=== PATIENT | female | born 1975 | race Caucasian/White ===

== ENCOUNTER → 2016-08-10 | Outpatient (CLI) | payer BC ==
[~2016-08-10] MED LIST: CEPH250C PO; DOCU100C37 PO; HYDR-3812 PO; IBUP-1773 PO; LABE200T3 PO; METF500T4 PO; MTF500T PO; NIFE60TA64 PO
--- NOTE | 2016-08-10 20:45 | Diagnostic Imaging Report ---
OB ultrasound. INDICATION: Follow-up lower spine not seen well on ultrasound performed in Dr. Penn's office. FINDINGS: heart is 130 beats per minutes. The placenta is anterior. No placenta previa. position is cephalic. The lower spine is still not seen. The CAROLE is 8 cm. IMPRESSION: The lower lumbar spine is still not seen due to position and in part due to size with relatively low amounts of amniotic fluid. Total CAROLE is 8 cm. Dictated by: Dictated on workstation # [id number]
== END ==
LOC: RAD 15:35
PROVIDERS: ATTEND Obstetrics & Gynecology
DX: Z36 Encounter for antenatal screening of mother (principal); O09.513 Supervision of elderly primigravida, third trimester; O10.013 Pre-existing essential hypertension complicating pregnancy, third trimester; Z3A.36 36 weeks gestation of pregnancy
CPT/HCPCS: 76816

== ENCOUNTER → 2016-09-19 | Outpatient (CLI) | payer BC ==
[2016-09-19 13:48] LABS: PROTEIN/CREATININE RATIO 3.91
[2016-09-19 13:57] LABS: BODY SURFACE AREA 2.12
--- NOTE | 2016-09-21 08:02 | Physician Query-Final Dx ---
[facility] JON[facility] 09/21/16 0802: Clinic Account Progress/Dx Physician Query: Please give diagnosis Date of Service September 19, 2016 at 12:43 VINICIUS OCHOA MD 09/21/16 0854: Clinic Account Progress/Dx DIAGNOSIS: Diagnosis Hypertension in , proteinuria in [facility] JONES September 21, 2016 08:02 VINICIUS OCHOA MD September 21, 2016 08:54
== END ==
LOC: LAB 12:43
PROVIDERS: ATTEND Obstetrics & Gynecology
DX: O10.019 Pre-existing essential hypertension complicating pregnancy, unspecified trimester (principal); O12.2 Gestational edema with proteinuria
CPT/HCPCS: 36415; 82570; 82575; 84156

== ENCOUNTER 2016-09-23 14:42 | Inpatient (IN) | payer BC ==
[~2016-09-23 14:42] MED LIST changes: -CEPH250C PO; -DOCU100C37 PO; -HYDR-3812 PO; -IBUP-1773 PO; -LABE200T3 PO; -METF500T4 PO; -NIFE60TA64 PO
[2016-09-23] MEDS ORDERED: LACTATED RINGERS 1,000 ML IV ONE ×2 (15:22→15:34)
[2016-09-23 15:25] VITALS: BP 184/109
[2016-09-23] MEDS ORDERED: SUCCINYLCHOLINE INJ 100 MG/5 ML SYR INJ ONE (15:34)
[2016-09-23] MEDS ORDERED: HYDROmorphone (DILAUDID) 2 MG/ML VIAL ONE (15:51)
[2016-09-23] MEDS ORDERED: fentaNYL INJECTION 100 MCG/2 ML AMP ONE (15:51)
[2016-09-23] MEDS ORDERED: LABETALOL HCL 20 MG/4 ML VIAL ONE (15:52)
[2016-09-23] MEDS ORDERED: LABETALOL HCL 100 MG/20 ML VIAL IV ONE (15:52)
[2016-09-23] MEDS ORDERED: KETOROLAC 30 MG/ML VIAL ONE (15:55)
[2016-09-23] MEDS ORDERED: ONDANSETRON 4 MG/2 ML (SDV) Z0FRAN ONE (16:05)
[2016-09-23] MEDS ORDERED: proPOfol 200 MG/20 ML (DIPRIVAN) VIAL IV ONE (16:05)
--- NOTE | 2016-09-23 16:11 | Diagnostic Imaging Report ---
OB ultrasound. INDICATION: Evaluate biophysical profile. FINDINGS: Unfortunately heart activity is not seen compatible with demise. There is a very small amount of fluid around the fetus, severe oligohydramnios. The placenta is anterior. There is no placenta previa. position is breech. IMPRESSION: There is lack of cardiac activity compatible with demise. Dr. Penn's nurse, Yoli, was called by Mr. Smart, the geodetic surveyor technologist performing the exam and informed about the findings. The patient was sent to Dr. Penn's office as requested. Dictated by: Dictated on workstation # [id number]
[2016-09-23] MEDS ORDERED: morphine INJ 10 MG/ML 1ML (SYR OR VIAL) IVP PRN (16:15)
[2016-09-23] MEDS ORDERED: ONDANSETRON 4 MG/2 ML (SDV) Z0FRAN IVP PRN ×2 (16:15→16:30)
[2016-09-23] MEDS ORDERED: MEPERIDINE (DEMEROL) INJ 50 MG/ML IVP PRN (16:15)
[2016-09-23] MEDS ORDERED: D5 LR IV SOLUTION 1,000 ML IV SCH (16:20)
[2016-09-23] MEDS ORDERED: OXYTOCIN/NORMAL SALINE 500 ML IV SCH (16:20)
[2016-09-23] MEDS ORDERED: SEVOFLURANE (ULTANE) 15 ML INHAL SOLN ONE (16:23)
--- NOTE | 2016-09-23 16:25 | History & Physical-OB/GYN ---
History of Present Illness History of Present Illness Reason for visit/HPI Patient is a 41 year old G1 at 34 weeks. History of chronic hypertension ( Procardia 60 mg XL), AMA, gestational diabetes,preexisting with metformin only prepregnancy and then glyburide 2.5 mg daily. A1C at 28 weeks 6.6. Had normal survey at 18-20 weeks except some limits in the visualization of the lower spine due to positioning and body habitus. Repeat sono still unable to see spine well. Has had BP fairly well controlled on Procardia XL 60 mg daily, and blood sugars with metformin and glyburide 2.5 mg daily. However, has been spilling occasional protein so 24 hour urine was completed this week. Also has had E coli UTI diagnosed 09/21 and treated with Keflex. Present to US today for scheduled growth scan and BPP for scheduled testing. No hearttones noted and fluid very low, notified me with results. Patient presented to clinic for results and to discuss findings. Finding confirmed by me with US in office. BP in office 148/78. Patient reports no headaches, no blurred vision, no abdominal pain, no contractions, no leakage of fluid, no bleeding. Despite obvious demise, unknown the duration. and patient requested that an emergency section be done "in case we can do anything". Due to baby positioning, a section would be suggested as well. . Patient and taken to women's services for emergency section. Patient understands that this will be done under general anesthesia. Risks of procedure includes, bleeding, infection, injury to bowel, bladder and ureter. Date of Admission September 23, 2016 at 15:26 I consulted on this patient on 09/23/16 16:25 Surgery done emergently. History and physical done late entry Attending Physician Fernando Gonzalez DO Admitting Physician Fernando Gonzalez DO Consult Allergies and Home Medications Allergies Coded Allergies: No Known Drug Allergies (Unverified , 03/07/12) Home Medications Metformin Hcl 500 Mg Tab, 500 MG PO BID, (Reported) Past Mwknqpg-Czrubt-Zirjjo Hx Patient Social History Marrital Status: Number of Children: 0 Number of living children: 0 Employed/Student: employed Alcohol Use: Denies Use Recreational Drug Use: No Smoking Status: Never a Smoker Recent Foreign Travel: No Contact w/other who traveled: No Immunizations Up To Date Tetanus Booster (TDap): Unknown Surgeries HX Surgeries: Yes Surgeries: Breast (Reduction mammoplasty) Respiratory Hx Respiratory Disorders: No Cardiovascular Cardiac Disorders: Hypertension Neurological Hx Neurological Disorders: No Reproductive System : Yes Hx : 1 Hx Para: 0 Sexually Transmitted Disease: No HIV/AIDS: No Genitourinary Hx Genitourinary Disorders: No Gastrointestinal Hx Gastrointestinal Disorders: No Endocrine Endocrine Disorders: Diabetes, Non-Insulin dep HEENT HX ENT Disorders: No Cancer Hx Cancer: No Psychosocial Hx Psychiatric Problems: No Integumentary HX Skin/Integumentary Disorder: No Blood Transfusions Hx Blood Disorders: No Adverse Reaction to a Blood Tr: No Family Medical History Significant Family History: Heart Disease, CAD Under 55 Years Old, CAD Over 55 Years Old, Diabetes Constitutional: no symptoms reported EENTM: other (no visual changes) Respiratory: no symptoms reported Cardiovascular: no symptoms reported Expected Date of Delivery: Nov 04, 2016 Control/STD Prophylaxis: None Musculoskeletal: no symptoms reported Skin: no symptoms reported Psychiatric/Neurological: No Symptoms Reported Physical Exam Physical Exam Vital Signs Vital Signs Date Time Temp Pulse Resp B/P (MAP) Pulse Ox O2 Delivery O2 Flow Rate FiO2 09/23/16 17:28 99.2 106 18 153/90 97 09/23/16 15:25 143 20 184/109 99 Capillary Refill : Labs Laboratory Tests 09/23/16 16:46: Sodium Level 136, Potassium Level 4.5, Chloride Level 105, Carbon Dioxide Level 21, Anion Gap 10, Blood Urea Nitrogen 12, Creatinine 0.70, Estimat Glomerular Filtration Rate > 60, BUN/Creatinine Ratio 17, Glucose Level 108H, Calcium Level 9.0, Total Bilirubin 0.1, Aspartate Amino Transf (AST/SGOT) 16, Alanine Aminotransferase (ALT/SGPT) 17, Alkaline Phosphatase 144H, Total Protein 5.9L, Albumin 2.9L General Appearance: Moderate Distress Respiratory: Chest Non Tender, Lungs Clear, Normal Breath Sounds Cardiovascular: Regular Rate, Rhythm, No Murmur, Other (1+ edema. normal DTR) Abdominal: normal bowel sounds, non tender Gynecology/General: No urethral discharge, No lesions Uterus: Other (FH 34) Pelvic Exam: other (deferred) Extremity: Pedal Edema Comments No heart tones notes, minimal fluid noted. Confirmed with US x 3. No pelvic exam done. Assessment/Plan Assessment and Plan 1. Advanced maternal age at 34 weeks (41 year old) with probable demise 2. Breech presentation 3. Chronic hypertension 4. proteinuria, likely due to above with increase due to UTI 5. E Coli UTI 6. Gestational diabetes, B, controlled with glyburide. 7. oligohydramnios Likely demise.Patient and request "everything done" and therefore will proceed with Stat section under general anesthesia. Likelihood of resuscitation limited. Will monitor BP and blood sugars. Treat suspected preeclampsia as indicated. Risks of surgery include but are not limited to, bleeding, infection, injury to bowel, bladder and ureter. Consents signed. Prophylactic Ancef. Problems: FERNANDO GONZALEZ DO September 23, 2016 16:25
[2016-09-23] MEDS: HYDROmorphone (DILAUDID) 2 MG/ML VIAL IVP PRN ×2 (16:29→16:39)
[2016-09-23] MEDS ORDERED: HYDROmorphone (DILAUDID) 2 MG/ML VIAL IVP PRN (16:30)
[2016-09-23] MEDS ORDERED: TETANUS,DIPTH,PERTUSS P/F (BOOSTRIX) 0.5 ML VIAL IM SCH (16:30)
[2016-09-23] MEDS ORDERED: MEASLES,MUMPS,RUBELLA 1 EA INJ SC SCH (16:30)
[2016-09-23] MEDS: KETOROLAC 30 MG/ML VIAL IVP SCH ×2 (16:34→22:00)
[2016-09-23] MEDS: fentaNYL INJECTION 100 MCG/2 ML AMP IVP PRN ×2 (16:43→16:49)
[2016-09-23] MEDS ORDERED: ceFAZolin 1,000 MG (ANCEF) VIAL IV ONE (17:15)
[2016-09-23 17:28] VITALS: BP 153/90
[2016-09-23 18:49] LABS: ALANINE AMINOTRANSFERASE 17 U/L (0-55); ALBUMIN 2.9 G/DL (3.2-4.5); ANION GAP 10 MMOL/L (5-14); ASPARTATE AMINO TRANSFERASE 16 U/L (5-34); BILIRUBIN,TOTAL 0.1 MG/DL (0.1-1.0); BLOOD UREA NITROGEN 12 MG/DL (7-18); BUN/CREATININE RATIO 17; CARBON DIOXIDE 21 MMOL/L (21-32); CHLORIDE 105 MMOL/L (98-107); GFR ESTIMATED > 60; GLUCOSE 108 MG/DL (70-105); POTASSIUM 4.5 MMOL/L (3.6-5.0); SODIUM 136 MMOL/L (135-145); TOTAL PROTEIN 5.9 G/DL (6.4-8.2)
[2016-09-23 22:00] VITALS: BP 157/95
[2016-09-23] MEDS ORDERED: CATHETER FLUSH 10 ML SYR IV SCH (22:00)
[2016-09-23] MEDS ORDERED: LACTATED RINGERS 1,000 ML IV SCH (23:00)
[2016-09-23] MEDS: HYDROcodone/APAP 5 MG/325 MG (LORTAB) TAB PO PRN (23:08)
[2016-09-23] MEDS ORDERED: D5 LR IV SOLUTION 1,000 ML IV ONE (23:46)
[2016-09-24] VITALS (9 sets, daily range): BP systolic 146–178; BP diastolic 89–107
[2016-09-24] MEDS: KETOROLAC 30 MG/ML VIAL IVP SCH (04:13)
[2016-09-24 06:30] LABS: BASOPHILS % (AUTO) 0 % (0-10); EOSINOPHILS # (AUTO) 0.2 10^3/uL (0.0-0.3); EOSINOPHILS % (AUTO) 1 % (0-10); LYMPHOCYTES % (AUTO) 25 % (12-44); MEAN CORPUSCULAR HEMOGLOBIN 30 PG (25-34); MEAN CORPUSCULAR HGB CONC 33 G/DL (32-36); MEAN CORPUSCULAR VOLUME 89 FL (80-99); MEAN PLATELET VOLUME 9.2 FL (7.4-10.4); MONOCYTES # (AUTO) 0.9 X 10^3 (0.0-1.0); MONOCYTES % (AUTO) 7 % (0-12); NEUTROPHILS # (AUTO) 7.9 X 10^3 (1.8-7.8); NEUTROPHILS % (AUTO) 66 % (42-75); PLATELET COUNT 269 10^3/uL (130-400); RED BLOOD COUNT 3.36 10^6/uL (4.35-5.85); RED CELL DISTRIBUTION WIDTH 14.5 % (10.0-14.5); WHITE BLOOD COUNT 11.9 10^3/uL (4.3-11.0)
[2016-09-24] MEDS: NIFEdipine ER 60 MG (PROCARDIA XL) TAB PO SCH (06:32)
[2016-09-24] MEDS: metFORMIN 500 MG (GLUCOPHAGE) TAB PO SCH ×2 (08:55→18:08)
[2016-09-24] MEDS: DOCUSATE SODIUM 100 MG (COLACE) CAP PO SCH (08:55)
[2016-09-24] MEDS: HYDROcodone/APAP 5 MG/325 MG (LORTAB) TAB PO PRN ×2 (09:09→15:46)
--- NOTE | 2016-09-24 14:04 | Postpartum Progress Note ---
Post Op Post-operative Day #1 s/pPLTCS, Emergency due to breech/ demise, chronic hypertension, Recent UTI, Gestational diabetes, B Subjective: Patient is without complaints. Ambulating, voiding after lance removed. Tolerating a regular diet without nausea or vomiting. Normal lochia. Pain is well controlled with oral pain medications. Understandable sad. Spent time with baby yesterday. No autopsy. Objective: Laboratory Tests Test 09/23/16 16:46 09/24/16 06:07 09/24/16 06:38 Range/Units Sodium Level 136 135-145 MMOL/L Potassium Level 4.5 3.6-5.0 MMOL/L Chloride Level 105 98-107 MMOL/L Carbon Dioxide Level 21 21-32 MMOL/L Anion Gap 10 5-14 MMOL/L Blood Urea Nitrogen 12 7-18 MG/DL Creatinine 0.70 0.60-1.30 MG/DL Estimat Glomerular Filtration Rate > 60 BUN/Creatinine Ratio 17 Glucose Level 108 H 70-105 MG/DL Calcium Level 9.0 8.5-10.1 MG/DL Total Bilirubin 0.1 0.1-1.0 MG/DL Aspartate Amino Transf (AST/SGOT) 16 5-34 U/L Alanine Aminotransferase (ALT/SGPT) 17 0-55 U/L Alkaline Phosphatase 144 H 40-136 U/L Total Protein 5.9 L 6.4-8.2 G/DL Albumin 2.9 L 3.2-4.5 G/DL White Blood Count 11.9 H 4.3-11.0 10^3/uL Red Blood Count 3.36 L 4.35-5.85 10^6/uL Hemoglobin 10.0 #L 11.5-16.0 G/DL Hematocrit 30 L 35-52 % Mean Corpuscular Volume 89 80-99 FL Mean Corpuscular Hemoglobin 30 25-34 PG Mean Corpuscular Hemoglobin Concent 33 32-36 G/DL Red Cell Distribution Width 14.5 10.0-14.5 % Platelet Count 269 130-400 10^3/uL Mean Platelet Volume 9.2 7.4-10.4 FL Neutrophils (%) (Auto) 66 42-75 % Lymphocytes (%) (Auto) 25 12-44 % Monocytes (%) (Auto) 7 0-12 % Eosinophils (%) (Auto) 1 0-10 % Basophils (%) (Auto) 0 0-10 % Neutrophils # (Auto) 7.9 H 1.8-7.8 X 10^3 Lymphocytes # (Auto) 3.0 1.0-4.0 X 10^3 Monocytes # (Auto) 0.9 0.0-1.0 X 10^3 Eosinophils # (Auto) 0.2 0.0-0.3 10^3/uL Basophils # (Auto) 0.0 0.0-0.1 10^3/uL Glucometer 126 H 70-110 MG/DL Physical Exam: General - Alert and oriented, no apparent distress Abdomen - Soft, appropriately tender to palpation, non-distended, fundus firm at umbilicus Incision - clean, dry and intact; no erythema or induration, no drainage Extremities - no edema, negative Akbar's bilaterally [] Assessment: [] post-operative day # [], status post []. Recovering well, hemodynamically stable Acute blood loss anemia [] Plan: Routine post-operative care. Encourage breast feeding. Encourage ambulation. VTE prophylaxis: SCDs. Ferrous sulfate supplementation. Plan for discharge [] Vitals - Labs Vital Signs - I&O Vital Signs Date Time Temp Pulse Resp B/P (MAP) Pulse Ox O2 Delivery O2 Flow Rate FiO2 09/24/16 09:05 99.4 111 18 146/93 97 09/24/16 07:00 98.1 108 18 150/91 97 09/24/16 06:25 98.4 94 18 178/100 98 09/24/16 02:34 98.0 92 18 150/89 96 09/23/16 22:00 99.0 102 18 157/95 96 09/23/16 17:28 99.2 106 18 153/90 97 09/23/16 15:25 143 20 184/109 99 I & O 09/24/16 07:00 Intake Total 700 ml Output Total 320 ml Balance 380 ml Labs Laboratory Tests 09/23/16 16:46: Sodium Level 136, Potassium Level 4.5, Chloride Level 105, Carbon Dioxide Level 21, Anion Gap 10, Blood Urea Nitrogen 12, Creatinine 0.70, Estimat Glomerular Filtration Rate > 60, BUN/Creatinine Ratio 17, Glucose Level 108H, Calcium Level 9.0, Total Bilirubin 0.1, Aspartate Amino Transf (AST/SGOT) 16, Alanine Aminotransferase (ALT/SGPT) 17, Alkaline Phosphatase 144H, Total Protein 5.9L, Albumin 2.9L 09/24/16 06:07: White Blood Count 11.9H, Red Blood Count 3.36L, Hemoglobin 10.0#L, Hematocrit 30L, Mean Corpuscular Volume 89, Mean Corpuscular Hemoglobin 30, Mean Corpuscular Hemoglobin Concent 33, Red Cell Distribution Width 14.5, Platelet Count 269, Mean Platelet Volume 9.2, Neutrophils (%) (Auto) 66, Lymphocytes (%) (Auto) 25, Monocytes (%) (Auto) 7, Eosinophils (%) (Auto) 1, Basophils (%) (Auto ) 0, Neutrophils # (Auto) 7.9H, Lymphocytes # (Auto) 3.0, Monocytes # (Auto) 0.9 , Eosinophils # (Auto) 0.2, Basophils # (Auto) 0.0 09/24/16 06:38: Glucometer 126H FERNANDO GONZALEZ DO September 24, 2016 14:04
--- NOTE | 2016-09-24 14:20 | Anesthesia-General Post-Op ---
General Patient Condition Mental Status/LOC: Same as Preop Cardiovascular: Satisfactory Nausea/Vomiting: Absent Respiratory: Satisfactory Pain: Controlled Complications: Absent Post Op Complications Complications None Follow Up Care/Instructions Patient Instructions None needed. Anesthesia/Patient Condition Patient Condition Patient is ambulating with expected abd pain after C/S, stable vital signs, no apparent adverse anesthesia problems. Plan for D/C to home tomorrow per patient. Will be available if needed. LASHAWN CRAIG DO September 24, 2016 14:20
[2016-09-24] MEDS ORDERED: LABETALOL 200 MG (NORMODYNE) TAB PO NR (15:15)
[2016-09-24] MEDS: IBUPROFEN 600 MG (MOTRIN) TAB PO SCH ×2 (15:46→22:02)
[2016-09-24] MEDS ORDERED: CEPHALEXIN 250 MG (KEFLEX) CAP PO SCH (21:00)
[2016-09-25 01:15] VITALS: BP 151/92
[2016-09-25] MEDS: IBUPROFEN 600 MG (MOTRIN) TAB PO SCH ×2 (04:08→11:10)
[2016-09-25 04:15] VITALS: BP 174/97
[2016-09-25] MEDS: NIFEdipine ER 60 MG (PROCARDIA XL) TAB PO SCH (04:18)
[2016-09-25 06:00] VITALS: BP 148/85
[2016-09-25] MEDS: KETOROLAC 30 MG/ML VIAL IVP SCH (07:52)
[2016-09-25] MEDS: DOCUSATE SODIUM 100 MG (COLACE) CAP PO SCH (08:35)
[2016-09-25] MEDS: metFORMIN 500 MG (GLUCOPHAGE) TAB PO SCH (08:36)
[2016-09-25 08:38] VITALS: BP 158/101
[2016-09-25] MEDS ORDERED: FUROSEMIDE 20 MG (LASIX) TAB ONE (09:04)
[2016-09-25] MEDS ORDERED: LABETALOL 200 MG (NORMODYNE) TAB PO SCH (09:15)
[2016-09-25] MEDS ORDERED: FUROSEMIDE 20 MG (LASIX) TAB PO ONE (09:15)
--- NOTE | 2016-09-25 10:28 | Postpartum Progress Note ---
Post Op Post-operative Day #2 s/p emergency PLTCS Chronic hypertension, proteinuria, gest diabetes B, IUGR, demise Subjective: Patient is wunderstandably depressed but declines medictino at this time. Received Lasix this am and labetalol last night and had labile and elevated BP last night.. Ambulating, voiding after lance removed. Tolerating a regular diet without nausea or vomiting. Normal lochia. Pain is well controlled with oral pain medications. Passing flatus. Has voided 3600 + since last night. Beginning to diurese. R [] feeding. [] Objective: Vital Sign - Last 12Hours 09/25/16 09/25/16 09/25/16 09/25/16 01:15 04:15 06:00 08:38 Temp 97.7 97.7 98.6 98.2 Pulse 91 96 109 102 Resp 18 18 18 20 B/P (MAP) 151/92 174/97 148/85 158/101 Pulse Ox 97 97 97 98 Laboratory Tests Test 09/25/16 06:05 09/25/16 10:26 Range/Units Glucometer 104 70-110 MG/DL Physical Exam: General - Alert and oriented, no apparent distress Abdomen - Soft, appropriately tender to palpation, non-distended, fundus firm at umbilicus Incision - clean, dry and intact; no erythema or induration, no drainage Extremities - no edema, negative Akbar's bilaterally [] Assessment: [1. post-operative day # 2, status post []. Recovering well, hemodynamically stable Acute blood loss anemia [] Plan: Routine post-operative care. Encourage breast feeding. Encourage ambulation. VTE prophylaxis: SCDs. Ferrous sulfate supplementation. Plan for discharge [] Vitals - Labs Vital Signs - I&O Vital Signs Date Time Temp Pulse Resp B/P (MAP) Pulse Ox O2 Delivery O2 Flow Rate FiO2 09/25/16 08:38 98.2 102 20 158/101 98 09/25/16 06:00 98.6 109 18 148/85 97 09/25/16 04:15 97.7 96 18 174/97 97 09/25/16 01:15 97.7 91 18 151/92 97 09/24/16 21:30 98.1 96 18 149/90 97 09/24/16 17:00 109 20 173/107 09/24/16 16:30 102 20 152/102 09/24/16 14:50 107 18 168/94 98 09/24/16 14:45 98.8 107 18 176/104 98 I & O 09/25/16 07:00 Intake Total 600 ml Output Total 1600 ml Balance -1000 ml Labs Laboratory Tests 09/25/16 06:05: Glucometer 104 FERNANDO GONZALEZ DO September 25, 2016 10:28
[2016-09-25] MEDS ORDERED: HYDR-3812 PO (10:42)
[2016-09-25] MEDS ORDERED: IBUP-1773 PO (10:42)
[2016-09-25] MEDS ORDERED: CEPH250C PO (10:42)
[2016-09-25] MEDS ORDERED: DOCU100C37 PO (10:42)
[2016-09-25] MEDS ORDERED: METF500T4 PO (10:42)
[2016-09-25] MEDS ORDERED: NIFE60TA64 PO (10:42)
[2016-09-25] MEDS ORDERED: LABE200T3 PO (10:42)
--- NOTE | 2016-09-25 10:46 | Discharge Inst-Women's Service ---
Discharge Inst-Women's Serv Depart Medication/Instructions New, Converted or Re-Newed RX: RX on Chart Instructions Continue previous doses of procardia, metformin and keflex Final Diagnosis demise Breech Primary section Chronic hypertension Gestational diabetes, B IUGR Oligohydramnios Consults/Follow Up Additional Follow Up: Yes (09/30/16 at 4 pm.) Activity Activity: Activity as Tolerated (no lifting over 25 lbs) Driving Instructions: No Driving for 1 Week NO SMOKING: NO SMOKING Nothing Inside Vagina: No Douching, No [place], No Tampons Diet Discharge Diet: ADA Diet (2000 kcal) Symptoms to Report to : Bleeding Excessive, Pain Increased, Fever Over 101 Degrees F, Pain/Pressure in Chest, Heart Beat Irreg/Pounding, Pain/Pressure in Jaw, Vaginal Bleeding Increase, Pain/Pressure in Shoulder, Vaginal Discharge Foul, Wt Gain Consecutive Days, Dizziness/Fainting, Shortness of Breath, Weight Gain Over 2 Pounds worsening depression For Any Problems or Questions: Contact Your Physician Skin/Wound Care Infection Signs and Symptoms: Increased Redness, Foul Odor of Wound, Increased Drainage, Skin Itchy or Has a Rash, Increased Swelling, Temperature Above 101 F Operative Area Clean and Dry: Keep Incision Clean/Dry Stitches/[place]/Dermabond: Dermabond Bathing Instructions: FERNANDO Benedict DO September 25, 2016 10:46
[2016-09-25 10:52] LABS: ALANINE AMINOTRANSFERASE 16 U/L (0-55); ALBUMIN 2.7 G/DL (3.2-4.5); ANION GAP 10 MMOL/L (5-14); ASPARTATE AMINO TRANSFERASE 16 U/L (5-34); BILIRUBIN,TOTAL 0.2 MG/DL (0.1-1.0); BLOOD UREA NITROGEN 10 MG/DL (7-18); BUN/CREATININE RATIO 13; CALCIUM 8.6 MG/DL (8.5-10.1); CARBON DIOXIDE 22 MMOL/L (21-32); CHLORIDE 107 MMOL/L (98-107); CREATININE SERUM 0.79 MG/DL (0.60-1.30); GFR ESTIMATED > 60; GLUCOSE 229 MG/DL (70-105); LACTATE DEHYDROGENASE 165 U/L (125-220); POTASSIUM 4.2 MMOL/L (3.6-5.0); SODIUM 139 MMOL/L (135-145); TOTAL PROTEIN 5.6 G/DL (6.4-8.2); URIC ACID 5.6 MG/DL (2.6-7.2)
[2016-09-25] MEDS: HYDROcodone/APAP 5 MG/325 MG (LORTAB) TAB PO PRN (11:42)
--- NOTE | 2016-09-26 18:09 | Discharge Summary ---
Diagnosis/Chief Complaint Date of Admission September 23, 2016 at 15:26 Date of Discharge September 25, 2016 at 12:13 Discharge Date: September 25, 2016 Admission Diagnosis Admission Diagnosis 1. Advanced maternal age at 34 weeks (41 year old) with probable demise 2. Breech presentation 3. Chronic hypertension 4. proteinuria, likely due to above with increase due to UTI 5. E Coli UTI 6. Gestational diabetes, B, controlled with glyburide. 7. oligohydramnios Likely demise.Patient and request "everything done" and therefore will proceed with Stat section under general anesthesia. Likelihood of resuscitation limited. Will monitor BP and blood sugars. Treat suspected preeclampsia as indicated. Risks of surgery include but are not limited to, bleeding, infection, injury to bowel, bladder and ureter. Consents signed. Prophylactic Ancef. Reason Hospital Visit Patient is a 41 year old G1 at 34 weeks. History of chronic hypertension ( Procardia 60 mg XL), AMA, gestational diabetes,preexisting with metformin only prepregnancy and then glyburide 2.5 mg daily. A1C at 28 weeks 6.6. Had normal survey at 18-20 weeks except some limits in the visualization of the lower spine due to positioning and body habitus. Repeat sono still unable to see spine well. Has had BP fairly well controlled on Procardia XL 60 mg daily, and blood sugars with metformin and glyburide 2.5 mg daily. However, has been spilling occasional protein so 24 hour urine was completed this week. Also has had E coli UTI diagnosed 09/21 and treated with Keflex. Present to US today for scheduled growth scan and BPP for scheduled testing. No hearttones noted and fluid very low, notified me with results. Patient presented to clinic for results and to discuss findings. Finding confirmed by me with US in office. BP in office 148/78. Patient reports no headaches, no blurred vision, no abdominal pain, no contractions, no leakage of fluid, no bleeding. Despite obvious demise, unknown the duration. and patient requested that an emergency section be done "in case we can do anything". Due to baby positioning, a section would be suggested as well. . Patient and taken to women's services for emergency section. Patient understands that this will be done under general anesthesia. Risks of procedure includes, bleeding, infection, injury to bowel, bladder and ureter. Discharge Summary-OBS Procedures None. Discharge Physical Examination Allergies: Coded Allergies: No Known Drug Allergies (Unverified , 03/07/12) Vitals & I&Os Vital Signs Date Time Temp Pulse Resp B/P (MAP) Pulse Ox O2 Delivery O2 Flow Rate FiO2 09/25/16 08:38 98.2 102 20 158/101 98 Discharge Instructions to patient/family Please see electonic discharge instructions given to patient. Discharge Medications Reviewed and agree with Discharge Medication list on patient's Discharge Instruction sheet Clinical Quality Measures DVT/VTE Risk/Contraindication: Risk Factor Score Per Nursin RFS Level Per Nursing on Admit: 1=Low/No VTE PPX FERNANDO GONZALEZ DO September 26, 2016 18:08
== END 2016-09-25 12:13 | disposition home or self-care (01) | DRG 765 ==
LOC: RAD 14:42 → LDRP 15:26 → EDSTATUS 10-07 15:30
PROVIDERS: ADMIT Obstetrics & Gynecology; ATTEND Obstetrics & Gynecology
PROC: 10D00Z1 Extraction of Products of Conception, Low, Open Approach (ICD-10-PCS; principal; 2016-09-24)
DX: O41.03X0 Oligohydramnios, third trimester, not applicable or unspecified (principal); O10.013 Pre-existing essential hypertension complicating pregnancy, third trimester; O24.113 Pre-existing type 2 diabetes mellitus, in pregnancy, third trimester; O32.1XX0 Maternal care for breech presentation, not applicable or unspecified; O23.43 Unspecified infection of urinary tract in pregnancy, third trimester; B96.20 Unspecified Escherichia coli [E. coli] as the cause of diseases classified elsewhere; O36.5930 Maternal care for other known or suspected poor fetal growth, third trimester, not applicable or unspecified; O12.13 Gestational proteinuria, third trimester; O09.513 Supervision of elderly primigravida, third trimester; Z37.1 Single stillbirth; Z3A.34 34 weeks gestation of pregnancy
CPT/HCPCS: 36415; 76815; 80053; 82962; 83033; 83615; 84550; 85025

== ENCOUNTER 2017-12-28 10:09 | Day surgery (SDC) | payer BC, OTHER ==
[~2017-12-28] VITALS: Ht 160 cm; Wt 113.4 kg
[~2017-12-28 10:09] MED LIST changes: +ACHD5005 PO; +CEPH250C PO; +DOCU100C37 PO; +IBUP-1773 PO; +LABE200T7 PO; +METF500T5 PO; +NIFE60TA64 PO
[2017-12-28 10:10] VITALS: BP 108/54
--- OUTSIDE RECORDS SUMMARY | 2017-12-28 10:13 | XMS REPORT | Clinical Summary ---
Author Author [facility] Organization [facility] Address Unknown Phone Unavailable Care Team Providers Care Clinical Data Specialist Name Role Phone Bonnie Soliz MD PCP Source Comments Some departments are not documenting in the electronic medical record. If you do not see the information that you expected, contact Release of Information in the Health Information Management department at [phone] for further assistance in locating additional records.[facility] Allergies No Known Allergies Current Medications Prescription Sig. Disp. Refills Start End Date Status Date ONETOUCH VERIO test strip TEST DIRECTED 5 02/03/20 Active 17 glyBURIDE (DIABETA) 5 mg 02/25/20 Active tablet 17 OVIDREL 250 mcg/0.5 mL INJECT SUBCUTANEOUSLY 3 02/12/20 Active injection syringe WHEN DIRECTED PER 17 PROTOCOL. letrozole (FEMARA) 2.5 mg 02/28/20 Active tablet 17 labetalol (NORMODYNE) 200 02/11/20 Active mg tablet 17 metFORMIN (GLUCOPHAGE) 03/04/20 Active 1,000 mg tablet 17 NIFEdipine XL 03/15/20 Active (PROCARDIA-XL) 60 mg 17 tablet NIFEdipine XL 02/25/20 Active (PROCARDIA-XL) 30 mg 17 tablet progesterone, 03/13/20 Active micronized(+) 17 (PROMETRIUM) 200 mg capsule VIT Take by mouth. Active CALC,IRON,FOLIC ( VITAMIN PO) aspirin EC 81 mg tablet Take 81 mg by mouth Active daily. Take with food. Active Problems No known active problems Family History Medical History Relation Name Comments COPD Father Cancer Father High Cholesterol Father Hypertension Father Diabetes Mother High Cholesterol Mother Hypertension Mother Relation Name Status Comments Father Alive Mother Alive Social History Tobacco Use Types Packs/Day Years Used Date Never Smoker Smokeless Tobacco: Never Used Tobacco Cessation: Counseling Given: No Alcohol Use Drinks/Week oz/Week Comments Yes Sex Assigned at Date Recorded Not on file Last Filed Vital Signs Vital Sign Reading Time Taken Blood Pressure 129/81 03/16/2017 2:31 PM CDT Pulse 96 03/16/2017 2:31 PM CDT Temperature - - Respiratory Rate - - Oxygen Saturation - - Inhaled Oxygen - - Concentration Weight 107.4 kg (236 lb 12.8 oz) 03/16/2017 2:25 PM CDT Height 161.5 cm (5' 3.6") 03/16/2017 2:25 PM CDT Body Mass Index 41.16 03/16/2017 2:25 PM CDT Plan of Treatment Health Maintenance Due Date Last Done Comments PHYSICAL (COMPREHENSIVE) 08/13/1982 EXAM PERTUSSIS VACCINE 08/13/1986 HIV SCREENING 08/13/1990 TETANUS VACCINE 08/13/1992 CERVICAL CANCER SCREENING 08/13/2005 BREAST CANCER SCREENING 2015 INFLUENZA VACCINE 02/13/2018 Results Not on filefrom Last 3 Months
--- NOTE | 2017-12-28 10:28 | Progress Note-Pre Operative ---
Pre-Operative Progress Note H&P Reviewed The H&P was reviewed, patient examined and no changes noted. Date Seen by Provider: Dec 28, 2017 Time Seen by Provider: 10:28 Date H&P Reviewed: Dec 28, 2017 Time H&P Reviewed: :28 Pre-Operative Diagnosis: LT PROXIMAL URETERAL STONE JASMYNE WALDEN MD Dec 28, 2017 10:28 am
--- NOTE | 2017-12-28 11:06 | Diagnostic Imaging Report ---
Indication: Left-sided kidney stones. Time of exam 11:07 AM No prior studies are available for comparison. Bowel gas pattern appears nonobstructed. There are calcific densities in the left abdomen. Multiple calcific densities overlie the left renal shadow, the largest approximately 3-4 mm in size. There is a more medially located calcification at the level of L2. This could potentially represent a ureteral calculus. No right-sided calculi are seen. Impression: Left-sided calculi, likely urinary tract in origin. CT of the urinary tracts may be useful for further evaluation, if clinically warranted. Dictated by: Dictated on workstation # [id number]
[2017-12-28] MEDS ORDERED: fentaNYL INJECTION 100 MCG/2 ML AMP IVP ONE (12:00)
[2017-12-28] MEDS ORDERED: cefTRIAXone 1 GM/NS 50 ML IVPB IV ONE ×2 (12:00)
[2017-12-28] MEDS ORDERED: LACTATED RINGERS 1,000 ML IV PRN (12:02)
[2017-12-28] MEDS ORDERED: fentaNYL INJECTION 100 MCG/2 ML AMP ONE ×2 (12:04→12:52)
--- NOTE | 2017-12-28 12:11 | Progress Note-Post Operative ---
Post-Operative Progess Note Surgeon (s)/Air And Water Filler (s) Surgeon JASMYNE WLADEN MD Air And Water Filler: N/A Pre-Operative Diagnosis LT PROXIMAL URETERAL AND LT RENAL STONES Post-Operative Diagnosis SAME Procedure & Operative Findings Date of Procedure 12/28/17 Procedure Performed/Findings LT ESWL Anesthesia Type GENERAL Estimated Blood Loss Estimated blood loss (mL): N/A Specimens/Packing Specimens Removed N/A Packing: N/A JASMYNE WALDEN MD Dec 28, 2017 12:11 pm
--- NOTE | 2017-12-28 12:12 | Discharge Inst-Urology ---
Discharge Inst-Urology Discharge Medications New, Converted, or Re-newed RX: RX on Chart Patient Instructions/Follow Up Plan Please make appointment to been seen in office in 2 weeks, KUB prior to it KUB on way home Post ESWL instructions Increase oral fluids for 48 hours and then as needed. Diet and Activity as tolerated. If questions or concerns contact your physician Or seek help at emergency department. JASMYNE WALDEN MD Dec 28, 2017 12:12 pm
[2017-12-28] MEDS ORDERED: SEVOFLURANE (ULTANE) 15 ML INHAL SOLN ONE (12:51)
[2017-12-28] MEDS ORDERED: ONDANSETRON 4 MG/2 ML (SDV) Z0FRAN ONE (12:51)
[2017-12-28] MEDS ORDERED: LIDOCAINE PF 2% 5 ML (XYLOCAINE) VIAL ONE (12:51)
[2017-12-28] MEDS ORDERED: DEXAMETHASONE 10 MG/ML (DECADRON) 1 ML VIAL ONE (12:51)
[2017-12-28] MEDS ORDERED: proPOfol 200 MG/20 ML (DIPRIVAN) VIAL IV ONE (12:51)
[2017-12-28] MEDS ORDERED: MIDAZOLAM 2 MG/2 ML (VERSED) VIAL ONE (12:52)
[2017-12-28] MEDS ORDERED: KETOROLAC 30 MG/ML VIAL ONE (12:55)
[2017-12-28] MEDS ORDERED: FUROSEMIDE 40 MG/4 ML INJ (LASIX) ONE (12:55)
[2017-12-28] MEDS ORDERED: MEPERIDINE (DEMEROL) INJ 50 MG/ML IVP PRN (13:45)
[2017-12-28] MEDS ORDERED: morphine INJ 10 MG/ML 1ML (SYR OR VIAL) IVP PRN (13:45)
[2017-12-28] MEDS ORDERED: ONDANSETRON 4 MG/2 ML (SDV) Z0FRAN IVP PRN (13:45)
[2017-12-28] MEDS ORDERED: GLYB2.5T4 PO (14:07)
[2017-12-28] MEDS ORDERED: PREN1TAB86 PO (14:07)
[2017-12-28] MEDS ORDERED: LABE200T7 PO (14:07)
[2017-12-28] MEDS ORDERED: ASPI-586 PO (14:09)
[2017-12-28 14:35] VITALS: BP 104/55
[2017-12-28] MEDS ORDERED: TAMS0.4C98 PO (14:59)
[2017-12-28] MEDS ORDERED: LEVO500T2 PO (14:59)
--- NOTE | 2017-12-28 14:59 | Anesthesia-General Post-Op ---
General Patient Condition Mental Status/LOC: Same as Preop Cardiovascular: Satisfactory Nausea/Vomiting: Absent Respiratory: Satisfactory Pain: Controlled Complications: Absent Post Op Complications Complications None Follow Up Care/Instructions Patient Instructions None needed. Anesthesia/Patient Condition Patient Condition Patient is doing well, no complaints, stable vital signs, no apparent adverse anesthesia problems. No complications reported per nursing. FARHANA RAMEY CRNA Dec 28, 2017 14:59
[2017-12-28 15:05] VITALS: BP 110/57
[2017-12-28 15:40] VITALS: BP 108/55
[2017-12-28 15:50] VITALS: BP 108/55
--- NOTE | 2017-12-28 15:55 | Diagnostic Imaging Report ---
INDICATION: Status post left-sided lithotripsy. TIME OF EXAM: 3:42 p.m. COMPARISON: Correlation is made with prior study earlier the same day. FINDINGS: Multiple calculi overlie the left renal shadow. The left kidney is obscured by overlying bowel gas. Right kidney is unremarkable. No definite calculi along the course of ureters is seen. Bowel gas pattern is unremarkable. IMPRESSION: Left-sided renal calculi, obscured by overlying bowel gas. Dictated by: Dictated on workstation # [id number]
--- NOTE | 2017-12-28 22:46 | OPERATIVE REPORT ---
DATE OF SERVICE: 12/28/2017 PREOPERATIVE DIAGNOSES: 1. Left proximal ureteral stone. 2. Left renal stone. POSTOPERATIVE DIAGNOSES: 1. Left proximal ureteral stone. 2. Left renal stone. OPERATION PERFORMED: Left ESWL. SURGEON: Zev Walden MD. ANESTHESIA: General. COMPLICATIONS: None. DESCRIPTION OF PROCEDURE: Under satisfactory general anesthesia, the patient in supine position on the ESWL table. First, we localized the left proximal ureteral stone. A 1000 shock at kV of 5 completely fragmented the stone that was not visualized anymore. Then, we localized the renal stone and delivered 1200 shocks which was complete fragmentation again. The patient received 40 mg of Lasix and 20 mg of Toradol IV at the end of the procedure. She tolerated the procedure and anesthesia well and was sent to recovery room in stable condition. Job ID: [id number] DocumentID: [id number] Dictated Date: 12/28/2017 13:27:47 Magnetic Resonance Imaging Director Date: 12/28/2017 22:45:32 Dictated By: ZEV WALDEN MD
== END 2017-12-28 15:50 | disposition home or self-care (01) ==
LOC: SDC 10:09
PROVIDERS: ATTEND Urology
DX: N20.1 Calculus of ureter (principal); N20.0 Calculus of kidney; Z11.2 Encounter for screening for other bacterial diseases; I10 Essential (primary) hypertension; K21.9 Gastro-esophageal reflux disease without esophagitis; E11.9 Type 2 diabetes mellitus without complications; E66.01 Morbid (severe) obesity due to excess calories; Z68.41 Body mass index [BMI] 40.0-44.9, adult; Z79.84 Long term (current) use of oral hypoglycemic drugs; Z79.899 Other long term (current) drug therapy
CPT/HCPCS: 74018; 82962; 84703; 87081

== ENCOUNTER → 2018-02-06 | Outpatient (CLI) | payer BC, OTHER ==
[~2018-02-06] MED LIST changes: +ASPI-586 PO; +GLYB2.5T4 PO; +LEVO500T2 PO; +METF-397 PO; -METF500T5 PO; +PREN1TAB86 PO; +TAMS0.4C98 PO
--- NOTE | 2018-02-06 16:05 | Diagnostic Imaging Report ---
INDICATION: Nephrolithiasis followup. KUB 2:08 PM FINDINGS: There is moderate amount of stool in the colon. There are no renal opacities projecting over either kidney or in the ureteral distribution. IMPRESSION: Negative KUB. Dictated by: Dictated on workstation # [id number]
== END ==
LOC: RAD 13:32
PROVIDERS: ATTEND Urology
DX: N20.2 Calculus of kidney with calculus of ureter (principal)
CPT/HCPCS: 74018